=== PATIENT | female | born 1970 | race African-American/Black ===

== ENCOUNTER 2020-03-07 04:16 | Day surgery (SDC) | payer BC ==
[2020-03-06 09:16] VITALS: BMI 26.6
--- NOTE | 2020-03-07 07:54 | HP ---
History & Physical Update - History History: No Change - Physical Physical: No Change - Assessment Assessment: No Change - Plan Plan: No Change
--- NOTE | 2020-03-07 07:57 | OP ---
Operative Note - Note: Operative Date: 03/07/20 Pre-Operative Diagnosis: L renal calculus Operation: ESWL L Findings: radiolucent 4 mm L UP renal calculus Post-Operative Diagnosis: Same as Pre-op Surgeon: Danial Frank Anesthesiologist/FOOD STOREROOM CLERK: Tea Tobar Anesthesia: MAC Estimated Blood Loss (mls): 0 Operative Report Dictated: Yes
[2020-03-07] MEDS ORDERED: LIDOCAINE HCL/PF 2% SDV 5ML VIAL ONE (08:22)
[2020-03-07] MEDS ORDERED: MIDAZOLAM HCL 2 MG/2 ML SINGLE DOSE VIAL ONE (08:32)
--- NOTE | 2020-03-07 09:16 | OP ---
DATE OF OPERATION: 03/07/2020 PREOPERATIVE DIAGNOSIS: Left renal calculus. POSTOPERATIVE DIAGNOSIS: Left renal calculus. PROCEDURE PERFORMED: Extracorporeal shock wave lithotripsy left renal calculus. SURGEON: Danial Castano M.D. ALL SOURCE INTELLIGENCE ANALYST: None. ANESTHESIA: IV sedation. ANESTHESIOLOGIST: Tea Tobar MD SPECIMENS: None. CULTURES: None. DRAINS: None. ESTIMATED BLOOD LOSS: None. COMPLICATIONS: None. DESCRIPTION OF PROCEDURE: The patient was brought into the operating room and placed on the operating table in the supine position. After the administration of intravenous sedation, the patient was positioned over the treatment head and under ultrasound guidance, an approximately 4-mm left upper pole renal calculus was identified, targeted and delivered 2500 shocks at maximum kilovoltage, with excellent fragmentation. She tolerated the procedure well and was transferred to the recovery room in stable condition. DANIAL CASTANO M.D. [place]/[id number]
[2020-03-07 09:35] VITALS: PULSE 68
[2020-03-07 11:10] VITALS: BP 144/90; TEMP 97
== END 2020-03-07 11:10 | disposition home or self-care (01) ==
LOC: JASU-SURG 04:16
PROVIDERS: ATTEND Urology
PROC: 0TF4XZZ Fragmentation in Left Kidney Pelvis, External Approach (ICD-10-PCS; principal; 2020-03-07 08:45)
DX: N20.0 Calculus of kidney (principal)